=== PATIENT | female | born 1970 | race Caucasian/White ===

== ENCOUNTER 2017-05-10 06:18 | Emergency (ER) | payer OTHER ==
[2017-05-10] MEDS ORDERED: HYDROmorphone 1 MG/ML Syringe IVPUSH ONE ×2 (06:49→09:11)
--- NOTE | 2017-05-10 07:04 | EDM.PDOC ---
<Alem Martínez Jermaine - Last Filed: 05/10/17 06:59> ED HPI GENERAL MEDICAL PROBLEM - General Chief Complaint: Back Pain or Injury Stated Complaint: BACK PAIN LUMP LEFT SIDE [id number] Time Seen by Provider: 05/10/17 06:25 Source of Information: Reports: Patient History Limitations: Reports: No Limitations - History of Present Illness INITIAL COMMENTS - FREE TEXT/NARRATIVE: c/o severe left low back pain with sciatica. Has had mild episodes in past but nothing as severe. 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 Recent swelling of knee and left ankle past 4-5 days. Remote hx of blood clots in brain. Lower Back Pain Score (Numeric/FACES): 8 - Related Data Allergies Allergy/AdvReac Type Severity Reaction Status Date / Time epinephrine Allergy Anxiety Verified 05/10/17 06:26 Home Meds: Home Meds FLUoxetine HCl [Fluoxetine HCl] 40 mg PO DAILY 08/28/13 [History] Fenofibrate Nanocrystallized [Fenofibrate] 145 mg PO DAILY 08/28/13 [History] Warfarin [Coumadin] 7.5 mg PO DAILY 08/28/13 [History] Aspirin/Calcium Carbonate/Mag [Aspirin Buffered 325 mg Tab] 325 mg PO DAILY 08/19 [History] Clobetasol Propionate 1 applic TOP ASDIRECTED 02/02/16 [History] Clotrimazole/Betamethasone Dip [Lotrisone Cream] 1 applic TOP ASDIRECTED [History] Fexofenadine [Kita] 60 mg PO DAILY PRN 02/02/16 [History] Pseudoephedrine [Sudogest] 60 mg PO Q4H PRN 02/02/16 [History] Tacrolimus [Protopic] 1 applic TOP ASDIRECTED 02/02/16 [History] Etanercept [Enbrel] 50 mg INJECT WEEKLY 02/06/16 [History] Past Medical History HEENT History: Reports: Impaired Vision Other HEENT History: HX OF VENOUS SINUS THROMBOSIS Cardiovascular History: Reports: High Cholesterol Other Cardiovascular History: CHRONIC ANTICOAGULATION; ANTIPHOSPHOLIPID SYNDROME Respiratory History: Reports: None Gastrointestinal History: Reports: Other (See Below) Other Gastrointestinal History: RECTAL BLEEDING , gluten intollerance Genitourinary History: Reports: None DOCTOR OF CHIROPRACTIC History: Reports: Other OB/BYN History: uterine ablation Musculoskeletal History: Reports: Arthritis, Fibromyalgia Other Musculoskeletal History: PSORIATIC ARTHRITIS; FIBROMYALGIA Neurological History: Reports: Headaches, Chronic Psychiatric History: Reports: Anxiety, Depression Endocrine/Metabolic History: Reports: Obesity/BMI 30+ Hematologic History: Reports: Anticoagulation Therapy Other Hematologic History: ANTIPHOSPHOLIPID ANTIBODY SYNDROME Immunologic History: Reports: Other (See Below) Other Immunologic History: PSORIATIC ARTHRITIS Oncologic (Cancer) History: Reports: None Dermatologic History: Reports: Psoriasis - Infectious Disease History Infectious Disease History: Reports: Chicken Pox - Past Surgical History Respiratory Surgical History: Reports: None Female Surgical History: Reports: Breast Biopsy, Endometrial Ablation Oncologic Surgical History: Reports: Biopsy of Breast Social & Family History - Family History Family Medical History: Noncontributory - Tobacco Use Smoking Status *Q: Never Smoker Second Hand Smoke Exposure: No - Alcohol Use Days Per Week of Alcohol Use: 1 Number of Drinks Per Day: 1 Total Drinks Per Week: 1 - Recreational Drug Use Recreational Drug Use: No ED ROS GENERAL - Review of Systems Review Of Systems: See Below Constitutional: Reports: No Symptoms HEENT: Reports: No Symptoms Respiratory: Reports: No Symptoms Cardiovascular: Reports: No Symptoms GI/Abdominal: Reports: Nausea (from pain) Musculoskeletal: Reports: Back Pain, Leg Pain (left lateral/pain, and numbness) Skin: Reports: No Symptoms Neurological: Reports: Numbness ED EXAM,LOWER BACK PAIN/INJURY - Physical Exam Exam: See Below Exam Limited By: No Limitations General Appearance: Alert, Moderate Distress Eye Exam: Bilateral Eye: EOMI Ears: Normal External Exam Nose: Normal Inspection Throat/Mouth: Normal Inspection Head: Atraumatic, Normocephalic Neck: Normal Inspection, Full Range of Motion Respiratory/Chest: No Respiratory Distress, Lungs Clear, Normal Breath Sounds Cardiovascular: Normal Peripheral Pulses, Regular Rate, Rhythm GI/Abdominal: Normal Bowel Sounds, Soft Back Exam: Decreased Range of Motion, Muscle Spasm (left paraspinal), Paraspinal Tenderness. No: Vertebral Tenderness Extremities: Pedal Edema (trace left), Limited Range of Motion Neurological: Alert, Oriented x 3 Psychiatric: Anxious Skin Exam: Warm, Dry, Cool. No: Mottled, Pallor, Rash Course - Vital Signs Last Recorded V/S: Last Vital Signs Temp 36.1 C 05/10/17 07:49 Pulse 66 05/10/17 07:49 Resp 16 05/10/17 07:49 BP 112/57 L 10/07/17 07:49 Pulse Ox 92 L 05/10/17 07:49 - Orders/Labs/Meds Orders: Active Orders 24 hr Category Date Time Status Phytonadione [AquaMephyton] Med 05/10/17 08:49 Once 5 mg PO ONETIME ONE Labs: Laboratory Tests 05/10/17 05/10/17 05/10/17 Range/Units 07:03 07:03 07:03 WBC 7.8 (5.0-10.0) 10^3/uL RBC 4.14 L (4.2-5.4) 10^6/uL Hgb 12.0 (12.0-16.0) g/dL Hct 35.3 L (37.0-47.0) % MCV 85.3 (80-100) fL MCH 29.0 (27.0-34.0) pg MCHC 34.0 (33.0-35.0) g/dL Plt Count 329 (150-450) 10^3/uL Neut % (Auto) 54.8 (42.2-75.2) % Lymph % (Auto) 33.4 (20.5-50.1) % Forrest % (Auto) 8.6 H (2-8) % Eos % (Auto) 2.9 (1.0-3.0) % Baso % (Auto) 0.3 (0.0-1.0) % PT > 120.0 H D (9.0-12.0) SEC INR > 10.0 H* (0.9-1.2) D-Dimer, Quantitative < 100 (0-400) ng/mL Sodium 135 (135-145) mmol/L Potassium 3.7 (3.6-5.0) mmol/L Chloride 105 (101-111) mmol/L Carbon Dioxide 22.0 (21.0-31.0) mmol/L Anion Gap 11.7 BUN 21 H (7-18) mg/dL Creatinine 0.7 (0.6-1.3) mg/dL Est Cr Clr Drug Dosing 85.79 mL/min Estimated GFR (MDRD) > 60 BUN/Creatinine Ratio 30.00 Glucose 92 (74-105) mg/dL Calcium 8.7 (8.4-10.2) mg/dl Total Bilirubin 0.4 (0.2-1.0) mg/dL AST 22 (10-42) IU/L ALT 19 (10-60) IU/L Alkaline Phosphatase 32 L (42-121) IU/L C-Reactive Protein (0.0-1.3) mg/dL Total Protein 6.1 L (6.7-8.2) g/dl Albumin 3.7 (3.2-5.5) g/dl Globulin 2.4 Albumin/Globulin Ratio 1.54 05/10/17 Range/Units 07:03 WBC (5.0-10.0) 10^3/uL RBC (4.2-5.4) 10^6/uL Hgb (12.0-16.0) g/dL Hct (37.0-47.0) % MCV (80-100) fL MCH (27.0-34.0) pg MCHC (33.0-35.0) g/dL Plt Count (150-450) 10^3/uL Neut % (Auto) (42.2-75.2) % Lymph % (Auto) (20.5-50.1) % Forrest % (Auto) (2-8) % Eos % (Auto) (1.0-3.0) % Baso % (Auto) (0.0-1.0) % PT (9.0-12.0) SEC INR (0.9-1.2) D-Dimer, Quantitative (0-400) ng/mL Sodium (135-145) mmol/L Potassium (3.6-5.0) mmol/L Chloride (101-111) mmol/L Carbon Dioxide (21.0-31.0) mmol/L Anion Gap BUN (7-18) mg/dL Creatinine (0.6-1.3) mg/dL Est Cr Clr Drug Dosing mL/min Estimated GFR (MDRD) BUN/Creatinine Ratio Glucose (74-105) mg/dL Calcium (8.4-10.2) mg/dl Total Bilirubin (0.2-1.0) mg/dL AST (10-42) IU/L ALT (10-60) IU/L Alkaline Phosphatase (42-121) IU/L C-Reactive Protein 0.7 (0.0-1.3) mg/dL Total Protein (6.7-8.2) g/dl Albumin (3.2-5.5) g/dl Globulin Albumin/Globulin Ratio Meds: Medications Discontinued Medications Generic Name Dose Route Start Last Admin Trade Name Boyd PRN Reason Stop Dose Admin Hydromorphone HCl 1 mg 05/10/17 06:49 05/10/17 07:06 Dilaudid IVPUSH 05/10/17 06:50 1 mg ONETIME ONE Administration Orphenadrine Citrate 60 mg 05/10/17 06:50 05/10/17 06:58 Norflex IM 05/10/17 06:51 60 mg ONETIME ONE Administration Departure - Departure Disposition: DC/Tfer to Other 70 Clinical Impression: Lumbar degenerative disc disease, Discitis of lumbosacral region, Coagulopathy - Discharge Information Forms: ED Department Discharge, Interfacility Transfer EMTALA - My Orders Last 24 Hours: My Active Orders 05/10/17 08:49 Phytonadione [AquaMephyton] 5 mg PO ONETIME ONE - Assessment/Plan Last 24 Hours: My Active Orders 05/10/17 08:49 Phytonadione [AquaMephyton] 5 mg PO ONETIME ONE <RamonaAlfredovinod Zarate - Last Filed: 05/10/17 09:13> Course - Vital Signs Text/Narrative:: Patient reports reviewed and Lumbar CT shows Erosio and Sclerosis of the superior endplate of L5 which may represent Discitis and or Osteomyelitis. Pt. also noted to have elevated INR of 10. Case discussed with Dr. Morris hospitalist @ [facility] in [place] and he will accept on transfer. Departure - Departure Time of Disposition: 08:54 Condition: Fair
[2017-05-10 07:33] LABS: CHLORIDE,CL 105 mmol/L (101-111); SODIUM,NA 135 mmol/L (135-145)
[2017-05-10 07:49] VITALS: BP 112/57
[2017-05-10] MEDS ORDERED: Phytonadione ORAL 2.5mg/2.5ml Soln Simple Syrup U/D PO ONE (08:49)
== END 2017-05-10 09:38 | disposition other institution (70) ==
LOC: DL.ED 06:18
DX: M46.46 Discitis, unspecified, lumbar region (principal); D68.9 Coagulation defect, unspecified; E78.00 Pure hypercholesterolemia, unspecified; M19.90 Unspecified osteoarthritis, unspecified site; F32.9 Major depressive disorder, single episode, unspecified; E66.9 Obesity, unspecified; L40.9 Psoriasis, unspecified; Z79.82 Long term (current) use of aspirin; Z79.899 Other long term (current) drug therapy; Z79.01 Long term (current) use of anticoagulants; Z88.8 Allergy status to other drugs, medicaments and biological substances; I10 Essential (primary) hypertension; Z68.30 Body mass index [BMI] 30.0-30.9, adult
CPT/HCPCS: 36415; 72131; 80053; 85025; 85379; 85610; 86140; 96372; 96374; 96376; 99285; A9270; J1170; J2360

== ENCOUNTER 2019-05-23 01:43 | Emergency (ER) | payer OTHER ==
[2019-05-23] MEDS ORDERED: Clindamycin HCl 150 MG Cap PO ONE (02:13)
--- NOTE | 2019-05-23 02:19 | EDM.PDOC ---
ED HPI GENERAL MEDICAL PROBLEM - General Chief Complaint: Bite:Animal, Insect Stated Complaint: DOG BITE R ARM Time Seen by Provider: 05/23/19 02:14 Source of Information: Reports: Patient History Limitations: Reports: No Limitations - History of Present Illness INITIAL COMMENTS - FREE TEXT/NARRATIVE: startled her dog and got bit. knows dog is UTD with shots. Right Arm Pain Score (Numeric/FACES): 10 - Related Data Allergies Allergy/AdvReac Type Severity Reaction Status Date / Time epinephrine Allergy Anxiety Verified 05/23/19 02:34 Home Meds: Home Meds FLUoxetine HCl [Fluoxetine HCl] 40 mg PO DAILY 08/28/13 [History] Fenofibrate Nanocrystallized [Fenofibrate] 145 mg PO DAILY 08/28/13 [History] Warfarin [Coumadin] 7.5 mg PO DAILY 08/28/13 [History] Aspirin/Calcium Carbonate/Mag [Aspirin Buffered 325 mg Tab] 325 mg PO DAILY 08/19 [History] Clobetasol Propionate 1 applic TOP ASDIRECTED 02/02/16 [History] Clotrimazole/Betamethasone Dip [Lotrisone Cream] 1 applic TOP ASDIRECTED [History] Fexofenadine [Kita] 60 mg PO DAILY PRN 02/02/16 [History] Pseudoephedrine [Sudogest] 60 mg PO Q4H PRN 02/02/16 [History] Tacrolimus [Protopic] 1 applic TOP ASDIRECTED 02/02/16 [History] Etanercept [Enbrel] 50 mg INJECT WEEKLY 02/06/16 [History] Past Medical History HEENT History: Reports: Impaired Vision Other HEENT History: HX OF VENOUS SINUS THROMBOSIS Cardiovascular History: Reports: High Cholesterol Other Cardiovascular History: CHRONIC ANTICOAGULATION; ANTIPHOSPHOLIPID SYNDROME Respiratory History: Reports: None Gastrointestinal History: Reports: Other (See Below) Other Gastrointestinal History: RECTAL BLEEDING , gluten intollerance Genitourinary History: Reports: None [employer]REE [employer] WORKER History: Reports: Other [employer] WORKER History: uterine ablation Musculoskeletal History: Reports: Arthritis, Fibromyalgia Other Musculoskeletal History: PSORIATIC ARTHRITIS; FIBROMYALGIA Neurological History: Reports: Headaches, Chronic Psychiatric History: Reports: Anxiety, Depression Endocrine/Metabolic History: Reports: Obesity/BMI 30+ Hematologic History: Reports: Anticoagulation Therapy Other Hematologic History: ANTIPHOSPHOLIPID ANTIBODY SYNDROME Immunologic History: Reports: Other (See Below) Other Immunologic History: PSORIATIC ARTHRITIS Oncologic (Cancer) History: Reports: None Dermatologic History: Reports: Psoriasis - Infectious Disease History Infectious Disease History: Reports: Chicken Pox - Past Surgical History Respiratory Surgical History: Reports: None Female Surgical History: Reports: Breast Biopsy, Endometrial Ablation Oncologic Surgical History: Reports: Biopsy of Breast Social & Family History - Family History Family Medical History: Noncontributory - Living Situation & Occupation Living situation: Reports: , with Family ED ROS GENERAL - Review of Systems Review Of Systems: ROS reveals no pertinent complaints other than HPI. ED EXAM, ANIMAL BITE - Physical Exam Exam: See Below Exam Limited By: No Limitations General Appearance: Alert, WD/WN, Mild Distress, Other (tearful upset) Ears: Hearing Grossly Normal Throat/Mouth: Normal Voice, No Airway Compromise Head: Atraumatic Neck: Non-Tender, Full Range of Motion Respiratory/Chest: No Respiratory Distress Cardiovascular: Regular Rate, Rhythm GI/Abdominal: Soft, Non-Tender Extremities: Other (right forearm punctures x 3, NV wnl, no active bleeding, mild local ecchymosis.) Neurological: Alert, Oriented, Normal Cognition, Normal Gait, No Motor/Sensory Deficits Psychiatric: Tearful Skin Exam: Normal Color, Warm/Dry ED ANIMAL BITE PROCEDURES - Laceration/Wound Repair Right Arm Lac/Wound Length In cm: 0.3 (right forearm) Appearance: Superficial, Clean, Other (puncture x 3) Distal NVT: Neuro & Vascular Intact, No Tendon Injury Skin Prep: Chlorhexidine (Hibiciens) Exploration/Debridement/Repair: Wound Explored, In a Bloodless Field, No Foreign Material Found Closed With: Dermabond Sterile Dressing Applied: Provider Tetanus Status Addressed: Yes Complications: No Course - Vital Signs Last Recorded V/S: Last Vital Signs Temp 36.6 C 05/23/19 02:27 Pulse 87 05/23/19 02:27 Resp 20 05/23/19 02:27 BP 145/80 H 05/23/19 02:27 Pulse Ox 100 05/23/19 02:27 - Orders/Labs/Meds Meds: Medications Discontinued Medications Generic Name Dose Route Start Last Admin Trade Name Freq PRN Reason Stop Dose Admin Clindamycin HCl 150 mg 05/23/19 02:13 05/23/19 02:22 Cleocin PO 05/23/19 02:14 150 mg ONETIME ONE Administration Departure - Departure Time of Disposition: 02:21 Disposition: Home, Self-Care 01 Condition: Good Clinical Impression: Dog bite of arm Qualifiers: Encounter type: initial encounter Laterality: right Qualified Code(s): S41.151A - Open bite of right upper arm, initial encounter - Discharge Information Instructions: Animal Bite, Adult, [id number] Forms: ED Department Discharge Additional Instructions: 1) keep wound clean dry covered 2) wound check Friday and check INR rx givne; clindamycin 150mg qid x 40
[2019-05-23 02:34] VITALS: BP 145/80; PULSE 87
== END 2019-05-23 02:40 | disposition home or self-care (01) ==
LOC: DL.ED 01:43
DX: S41.151A Open bite of right upper arm, initial encounter (principal); E78.00 Pure hypercholesterolemia, unspecified; F41.9 Anxiety disorder, unspecified; F32.9 Major depressive disorder, single episode, unspecified; Z88.8 Allergy status to other drugs, medicaments and biological substances; Z79.01 Long term (current) use of anticoagulants; Z79.82 Long term (current) use of aspirin; Z79.899 Other long term (current) drug therapy; W54.0XXA Bitten by dog, initial encounter
CPT/HCPCS: 12001; 99282; A9270

== ENCOUNTER 2022-05-08 23:48 | Emergency (ER) | payer OTHER | END 2022-05-09 01:03 | disposition home or self-care (01) | LOC: DL.ED 23:48 | DX: S01.312A Laceration without foreign body of left ear, initial encounter (principal); W06.XXXA Fall from bed, initial encounter | CPT/HCPCS: 99283 ==